=== PATIENT | female | born 1995 | race Caucasian/White ===

== ENCOUNTER → 2018-01-18 | Outpatient (CLI) | payer BC ==
--- NOTE | 2018-01-18 12:09 | RADIOLOGY IMAGING REPORT ---
FACILITY: [facility] [place] PATIENT NAME: Dionna Zavala : 1995 MR: [id number] V: [id number] EXAM DATE: [id number] ORDERING PHYSICIAN: DANIAL ZHU TECHNOLOGIST: Location: [facility] Patient: Dionna Zavala : 1995 Visit/Account:[id number] Date of Sevice: 01/18/2018 EXAMINATION: CT Head without intravenous contrast HISTORY: Concussion 2 weeks ago. Worsening symptoms. TECHNIQUE: Axial images were obtained from the skull base to the vertex without intravenous contrast . Sagittal and coronal reformatted images are also submitted. One of the following dose optimization techniques was utilized in the performance of this exam: Autom ated exposure control; adjustment of the mA and/or kV according to the patient's size; or use of an i terative reconstruction technique. Specific details can be referenced in the facility's radiology C T exam operational policy. COMPARISON: None available. FINDINGS: Brain volume: Normal. Ventricles: Negative. Acute ischemic changes: None. Hemorrhage: None. Masses / edema: None. Stevenson-white: Negative. White matter: Negative. Vessels: Negative. Extra-axial: Negative. Calvarium / skull base: Negative. Visualized sinuses / orbits: Negative. IMPRESSION: Normal noncontrast head CT. Report Dictated By: Manuelito Silva MD at 01/18/2018 12:02 PM Report E-Signed By: Manuelito Silva MD at 01/18/2018 12:05 PM [id number]
== END ==
LOC: CT 11:05
PROVIDERS: ATTEND Nurse Practitioner Family
DX: F07.81 Postconcussional syndrome (principal); R42 Dizziness and giddiness; R11.0 Nausea
CPT/HCPCS: 70450